=== PATIENT | male | born 1940 | race Caucasian/White ===

== ENCOUNTER → 2017-10-26 | Outpatient (CLI) | payer MEDICARE, OTHER ==
[~2017-10-26] MED LIST: ADULT LOW DOSE81 MG; ASTEPRO; B-12 DOTS500 MCG; FISHOIL; FOLIC ACID; IRON; LISINOPRIL-HCT1 EAC1; NASONEX17 GM; NORCO 5-325 TA1 EACH PO; NORFLEX100 MG PO; VITAMIN C + RO500 MG
--- NOTE | 2017-10-26 14:34 | 2DMMODE ---
[place] [address] 2 D/M-MODE ECHOCARDIOGRAM Name: KALIN DAMON Room: [facility]#: [id number] Admission: 10/26/17 Attend Phys: Krystle Coulter MD Discharge: Date of : 42 Date of Service: 10/26/17 1433 Report #: [id number] THIS REPORT FOR: //name// APPROVED REPORT Study performed: 10/26/2017 13:42:55 EXAM: Comprehensive 2D, Doppler, and color-flow Echocardiogram Patient Location: Out-Patient Status: routine BSA: 2.39 HR: 70 bpm BP: 142/82 mmHg Other Information Study Quality: Good Indications Dyspnea Hypertension/HDD 2D Dimensions LVEF(%): 75.64 (>50%) IVSd: 11.07 (7-11mm) LVOT Diam: 20.45 (18-24mm) LVDd: 50.39 mm PWd: 10.69 (7-11mm) Ascending Ao: 34.39 (22-36mm) LVDs: 27.91 (25-40mm) Aortic Root: 35.40 mm Platt's LVEF: 75.64 % Volumes Left Atrial Volume (Systole) LA ESV Index: 18.80 mL/m2 Aortic Valve AoV Peak Doni.: 1.39 m/s AO Peak Gr.: 7.77 mmHg LVOT Max P.96 mmHg AO Mean Gr.: 4.59 mmHg LVOT Mean P.01 mmHg LVOT Max V: 0.99 m/s AO V2 VTI: 26.87 cm LVOT Mean V: 0.65 m/s RACHEL (VTI): 2.52 cm2 LVOT V1 VTI: 20.64 cm Mitral Valve E/A Ratio: 0.65 [place] [address] 2 D/M-MODE ECHOCARDIOGRAM Name: KALIN DAMON Room: [facility]#: [id number] Admission: 10/26/17 Attend Phys: Krystle Coulter MD Discharge: Date of : 42 Date of Service: 10/26/17 1433 Report #: [id number] MV Decel. Time: 468.26 ms MV E Max Doni.: 0.55 m/s MV PHT: 135.80 ms MVA (PHT): 1.62 cm2 TDI E/Lateral E': 6.11 E/Medial E': 6.88 Medial E' Doni.: 0.08 m/s Lateral E' Doni.: 0.09 m/s Pulmonary Valve PV Peak Doni.: 1.21 m/s PV Peak Gr.: 5.89 mmHg Tricuspid Valve TR Peak Gr.: 28.14 mmHg RVSP: 33.14 mmHg Left Ventricle The left ventricle is normal size. There is normal LV segmental wall motion. There is normal left ventricular wall thickness. Left ventricular systolic function is normal. The left ventricular ejection fraction is within the normal range. LVEF is 60-65%. Grade I - abnormal relaxation pattern. Right Ventricle The right ventricle is normal size. The right ventricular systolic function is normal. Atria The left atrium size is normal. The right atrium size is normal. Aortic Valve Aortic valve is mildly calcified. No aortic regurgitation is present. There is no aortic valvular stenosis. Mitral Valve The mitral valve is normal in structure. There is no mitral valve regurgitation noted. No evidence of mitral valve stenosis. Tricuspid Valve The tricuspid valve is normal in structure. Mild tricuspid regurgitation. The RVSP is __33 mmHg. Pulmonic Valve The pulmonary valve is normal in structure. There is no pulmonic [place] [address] 2 D/M-MODE ECHOCARDIOGRAM Name: KALIN DAMON Room: [facility]#: [id number] Admission: 10/26/17 Attend Phys: Krystle Coulter MD Discharge: Date of : 42 Date of Service: 10/26/17 1433 Report #: [id number] Great Vessels The aortic root is normal in size. IVC is normal in size and collapses with >50% inspiration Pericardium There is no pericardial effusion. <Conclusion> LVEF is 60-65%. Aortic valve is mildly calcified. <ELECTRONICALLY SIGNED> By: Wesley Kahn MD, FACC 10/26/17 1433 1433 1433 Wesley Kahn MD, FACC /INF
== END ==
LOC: M.CRD 13:18
DX: I07.1 Rheumatic tricuspid insufficiency (principal); I70.0 Atherosclerosis of aorta; R53.83 Other fatigue